=== PATIENT | female | born 1955 | race African-American/Black ===

== ENCOUNTER 2021-11-16 22:26 | Observation (INO) | payer SELFPAY ==
[~2021-11-16] VITALS: Ht 170.2 cm; Wt 94.0 kg
--- NOTE | 2021-11-16 22:34 | NUR ---
BY WC TO ROOM
--- NOTE | 2021-11-16 22:45 | NUR ---
BY WC TO ROOM
[2021-11-16 23:27] LABS: HEMATOCRIT 22.4 % (37.0-47.0); IMMATURE GRANULOCYTES 0.1 % (0.0-5.0); MEAN CELL VOLUME 67.7 fL CALC (80.0-100.0); MEAN CORPUSCULAR HGB 17.8 pG CALC (26.0-32.0); MEAN CORPUSCULAR HGB CONC 26.3 g/dL CAL (32.0-36.0); NEUT# 5.17 thou/uL (2.00-7.15); RED BLOOD COUNT 3.31 mill/uL (4.20-5.60); RED CELL DISTRI WIDTH 19.1 % (11.5-15.5)
[2021-11-16 23:43] LABS: HEMOGLOBIN 5.9 g/dl (12.0-16.0)
[2021-11-16 23:45] LABS: ALBUMIN 3.9 g/dL (3.2-5.0); ALKALINE PHOSPHATASE 117 u/l (38-126); ANION GAP 15 (6-22 (CALC)); BILIRUBIN, TOTAL 0.4 mg/dL (0.0-1.4); BUN 13 mg/dL (8-23); BUN/CREATININE RATIO 15 (12-20 (CALC)); CARBON DIOXIDE 25 mmol/l (22-30); CHLORIDE 101 mmol/l (95-108); CPK 53 u/l (30-165); CREATININE 0.9 mg/dL (0.5-1.0); GFR > 60 ML/MIN (>=60 (CALC)); GFR FOR AFR.AMER. > 60 ML/MIN (>=60 (CALC)); MAGNESIUM 1.7 mg/dL (1.6-2.3); POTASSIUM 3.9 mmol/l (3.5-5.1); SGOT/AST 23 u/l (9-36); SODIUM 137 mmol/l (137-146); TOTAL PROTEIN 7.2 g/dL (6.3-8.2)
[2021-11-16] MEDS ORDERED: PRILOSEC20 MG/CAP PO (23:48)
[2021-11-16] MEDS ORDERED: COZAAR50 MG PO (23:48)
[2021-11-16] MEDS ORDERED: ADULT ASPIRIN R81 MG PO (23:49)
[2021-11-16] MEDS ORDERED: ACARBOSE100 MG PO (23:50)
[2021-11-16] MEDS ORDERED: GLICLAZIDE PO (23:52)
[2021-11-16] MEDS ORDERED: METFORM PO (23:55)
[2021-11-16] MEDS ORDERED: [UNRECOGNIZED DRUG - OTHER] PO (23:55)
[2021-11-16] MEDS ORDERED: ISORDIL10 MG PO (23:56)
[2021-11-16 23:57] LABS: MYOGLOBIN 30 ng/mL (0 - 62)
[2021-11-16] MEDS ORDERED: LASIX 40 MG TAB40 MG PO (23:58)
[2021-11-16] MEDS ORDERED: APRESOLINE50 MG PO (23:59)
[2021-11-17] VITALS (12 sets, daily range): BP systolic 141–167; BP diastolic 74–100
[2021-11-17] MEDS ORDERED: XARELTO20 MG PO (00:01)
[2021-11-17] MEDS ORDERED: [UNRECOGNIZED DRUG - CODE] PO (00:02)
[2021-11-17] MEDS ORDERED: DICLOFENAC75 MG PO (00:03)
[2021-11-17 00:16] LABS: TSH, 3RD GENERATION 2.62 uIU/mL (0.47 - 4.68)
--- NOTE | 2021-11-17 00:42 | NUR ---
PT RESTING . DAUGHTER AT BS.
--- NOTE | 2021-11-17 01:36 | NUR ---
RECEIVED REPORT FROM NURSE RUIZ, PATIENT TRANSPORTED VIA WHEELCHAIR, WALKED TOWARD BED, PATIENT ALERT ORIENTED ABLE TO MAKE NEEDS KNOWN, PATIENT ORIENTED TO ROOM AND CALL LIGHT SYSTEM.
--- NOTE | 2021-11-17 02:00 | NUR ---
CONSENT FOR BLOOD TRANSFUSION SECURED, PATIENT IS AFEBRILE, CALL LIGHT WITHIN REACH.
--- NOTE | 2021-11-17 02:40 | NUR ---
FIRST UNIT OF BLOOD STARTED V/S TAKEN RECORDED PRE TRANSFUSION, NURSE IN ROOM MONITORING REACTIONS.
--- NOTE | 2021-11-17 04:21 | NUR ---
1st UNIT OF BLOOD CURRENTLY INFUSING, PATIENT RESTING IN BED, NO ALLEFGIC REACTIONS NOTED, CALL LIGHT AT REACH.
[2021-11-17 06:01] LABS: URINE BILIRUBIN - DIPSTICK NEGATIVE (NEGATIVE); URINE BLOOD DIPSTICK NEGATIVE (NEGATIVE); URINE COLOR YELLOW; URINE GLUCOSE - DIPSTICK >=1000 mg/dL (NEGATIVE); URINE KETONE TRACE mg/dL (NEGATIVE); URINE LEUK ESTERASE NEGATIVE (NEGATIVE); URINE NITRITE - DIPSTICK NEGATIVE (Negative); URINE PROTEIN - DIPSTICK NEGATIVE (NEG-TRACE); URINE SPECIFIC GRAVITY 1.015; URINE UROBILINOGEN - DIPSTICK 0.2 E.U./dL (0.2)
--- NOTE | 2021-11-17 06:05 | NUR ---
SECOND UNIT OF BLOOD STARTED, PATIENT CURRENTLY BEING MONIRTORED FOR ANY ALLERGIC REACTIONS.PATIENT AWAKE, WATCHING TV CALL LIGHT AT REACH.
--- NOTE | 2021-11-17 06:23 | NUR ---
ONGOIMG 2ND UNIT OF BLOOD NO ALERGIC REACTION NOTED.
--- NOTE | 2021-11-17 07:00 | NUR ---
SHIFT CHANGE REPORT, PT AWAKE ALERT AND ORIENTED SITTING UP IN BED, DENIES PAIN AT THIS TIME BUT DOES REPORT TENDERNESS TO LEFT BACK ON PALPATION, BLOOD TRANSFUSING AT THIS TIME, CALL MALLOY IN REACH AND BED LOCKED IN LOWEST POSITION.
[2021-11-17 11:56] LABS: HEMATOCRIT 33.4 % (37.0-47.0); HEMOGLOBIN 9.5 g/dl (12.0-16.0)
--- NOTE | 2021-11-17 12:41 | NUR ---
RESTING IN BED NOW AFTER HAVING MEAL, FAMILY VISITED, NO NEW COMPLAINS.
[2021-11-17 14:45] LABS: ACT PARTIAL THROMBO TIME 25.9 SECONDS (20.0-32.5); PROTHROMBIN TIME 10.9 SECONDS (9.0-12.5)
--- NOTE | 2021-11-17 16:04 | NUR ---
TRANSPORTERS HERE TO RECEIVE PT TO TAKE TO [facility], PT LEAVING ON HEPARIN DRIP AND TELE.
--- NOTE | 2021-11-17 16:40 | NUR ---
REPORT CALLED TO MARKY GAEE RECEIVED REPORT.
== END 2021-11-17 16:01 | disposition short-term general hospital (02) | DRG 282 ==
LOC: ED 22:26 → ED-I 23:08 → ED 11-17 00:23 → MS2 11-17 00:24
PROVIDERS: Family Medicine; Nurse Practitioner; ADMIT Internal Medicine; ATTEND Internal Medicine
PROC: 30233N1 Transfusion of Nonautologous Red Blood Cells into Peripheral Vein, Percutaneous Approach (ICD-10-PCS; principal; 2021-11-17)
PROC: 30233N1 Transfusion of Nonautologous Red Blood Cells into Peripheral Vein, Percutaneous Approach (ICD-10-PCS; 2021-11-17)
DX: I21.4 Non-ST elevation (NSTEMI) myocardial infarction (principal); D64.9 Anemia, unspecified; I25.10 Atherosclerotic heart disease of native coronary artery without angina pectoris; I10 Essential (primary) hypertension; E11.9 Type 2 diabetes mellitus without complications; Z86.718 Personal history of other venous thrombosis and embolism; Z79.01 Long term (current) use of anticoagulants; Z20.822 Contact with and (suspected) exposure to COVID-19
CPT/HCPCS: G0378; J1644; J1756; P9016

== ENCOUNTER 2021-12-20 17:39 | Emergency (ER) | payer SELFPAY ==
[~2021-12-20] VITALS: Ht 170.2 cm; Wt 86.3 kg
[~2021-12-20 17:39] MED LIST: ACARBOSE100 MG PO; ADULT ASPIRIN R81 MG PO; APRESOLINE50 MG PO; COZAAR50 MG PO; DICLOFENAC75 MG PO; GLICLAZIDE PO; ISORDIL10 MG PO; LASIX 40 MG TAB40 MG PO; METFORM PO; PRILOSEC20 MG/CAP PO; XARELTO20 MG PO; [UNRECOGNIZED DRUG - CODE] PO; [UNRECOGNIZED DRUG - OTHER] PO
[2021-12-20 18:40] LABS: HEMATOCRIT 34.6 % (37.0-47.0); HEMOGLOBIN 9.7 g/dl (12.0-16.0); IMMATURE GRANULOCYTES 0.2 % (0.0-5.0); MEAN CELL VOLUME 78.8 fL CALC (80.0-100.0); MEAN CORPUSCULAR HGB 22.1 pG CALC (26.0-32.0); NEUT# 2.85 thou/uL (2.00-7.15); RED BLOOD COUNT 4.39 mill/uL (4.20-5.60); RED CELL DISTRI WIDTH 26.1 % (11.5-15.5)
[2021-12-20 18:53] LABS: ALBUMIN 4.2 g/dL (3.2-5.0); ALKALINE PHOSPHATASE 114 u/l (38-126); AMYLASE 148 u/l (30-110); ANION GAP 13 (6-22 (CALC)); BUN 9 mg/dL (8-23); BUN/CREATININE RATIO 11 (12-20 (CALC)); CARBON DIOXIDE 29 mmol/l (22-30); CHLORIDE 98 mmol/l (95-108); CREATININE 0.8 mg/dL (0.5-1.0); GFR > 60 ML/MIN (>=60 (CALC)); GFR FOR AFR.AMER. > 60 ML/MIN (>=60 (CALC)); LIPASE 342 u/l (23-300); POTASSIUM 3.9 mmol/l (3.5-5.1); SGOT/AST 29 u/l (9-36); SODIUM 136 mmol/l (137-146); TOTAL PROTEIN 7.7 g/dL (6.3-8.2)
[2021-12-20 18:56] LABS: ACT PARTIAL THROMBO TIME 26.5 SECONDS (20.0-32.5); PROTHROMBIN TIME 10.7 SECONDS (9.0-12.5)
[2021-12-20 18:58] LABS: BILIRUBIN, TOTAL 0.6 mg/dL (0.0-1.4)
[2021-12-20 18:58] LABS: URINE BILIRUBIN - DIPSTICK NEGATIVE (NEGATIVE); URINE BLOOD DIPSTICK NEGATIVE (NEGATIVE); URINE COLOR YELLOW; URINE GLUCOSE - DIPSTICK 500 mg/dL (NEGATIVE); URINE KETONE NEGATIVE (NEGATIVE); URINE LEUK ESTERASE NEGATIVE (NEGATIVE); URINE PH 7.5 (4.5-8.0); URINE PROTEIN - DIPSTICK NEGATIVE (NEG-TRACE); URINE SPECIFIC GRAVITY 1.015; URINE UROBILINOGEN - DIPSTICK 0.2 E.U./dL (0.2)
[2021-12-20 19:00] LABS: URINE NITRITE - DIPSTICK NEGATIVE (Negative)
[2021-12-20 20:25] VITALS: BP 160/81
== END 2021-12-20 20:25 | disposition short-term general hospital (02) | DRG 280 ==
LOC: ED 17:39 → EDBD 19:10 → ED 19:10
DX: I21.4 Non-ST elevation (NSTEMI) myocardial infarction (principal); U07.1 COVID-19; I10 Essential (primary) hypertension; E11.9 Type 2 diabetes mellitus without complications; Z86.718 Personal history of other venous thrombosis and embolism
CPT/HCPCS: J1644